=== PATIENT | male | born 2000 | race Caucasian/White ===

== ENCOUNTER 2023-06-14 13:36 | Day surgery (SDC) | payer OTHER, SELFPAY ==
[2023-06-12 14:55] VITALS: BMI 19.2
[2023-06-14] VITALS (10 sets, daily range): BP systolic 101–144; BP diastolic 70–89; PULSE 76–97; RESP 12–20; TEMP 36.4–37.2; O2SAT 10–100; BMI 19.2
[2023-06-14] MEDS: LACTATED RINGERS 1,000 ML 42 ML IV (15:36)
--- NOTE | 2023-06-14 16:05 | PM.PREOP ---
Pre-operative Note Interval Note History & Physical reviewed/Exam performed by Physician: Yes Changes to H&P: No
--- NOTE | 2023-06-14 16:06 | SUR.OPER ---
Supine on padded OR bed, head on pillow, LEFT ARM secured on padded arm board at <90 degrees abduction, OPERATIVE ARM ON PADDED HAND TABLE. legs uncrossed, safety belt at thigh, tape over blanket over lower legs.
[2023-06-14] MEDS: CEFAZOLIN 2 GM/100 ML PREMIX 100 ML IV (16:28)
[2023-06-14] MEDS: BUPIVACAINE 0.25% (PF) VIAL 30 ML INJ (16:39)
[2023-06-14] MEDS: MEPERIDINE 50 MG/ML INJ 12.5 MG IV (17:27)
[2023-06-14] MEDS: KETOROLAC 30 MG/ML VIAL IV (17:33)
[2023-06-14] MEDS: ACETAMINOPHEN 325 MG TABLET 975 MG PO (17:34)
[2023-06-14] MEDS: OXYCODONE IR 5 MG TABLET PO ×2 (17:34→18:16)
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
== END 2023-06-14 18:47 | disposition home or self-care (01) ==
PROVIDERS: PCP Internal Medicine; Referring Provider Orthopaedic Surgery; Visit Provider Orthopaedic Surgery
PROC: (CPT 26615; principal; 2023-06-14 16:15)
DX: S62.324A Displaced fracture of shaft of fourth metacarpal bone, right hand, initial encounter for closed fracture (principal); S62.322A Displaced fracture of shaft of third metacarpal bone, right hand, initial encounter for closed fracture
CPT/HCPCS: 26615 ×2; C1776; J0690; J1100; J1885; J2175; J2250; J2405; J2704; J3010